=== PATIENT | male | born 1990 | race African-American/Black ===

== ENCOUNTER 2017-07-26 23:20 | Inpatient (IN) ==
--- NOTE | 2017-07-27 00:16 | Emergency Department Note ---
Mariel Chapin Emily, am scribing for, and in the presence of, Johnathan Humphries MD 00: 12. Kristel Chapin Charles R, MD, personally performed the services described in this documentation, ascribed by Pam Floyd in my presence, and it is both accurate and complete . Arrival - Arrival Chief Complaint: Psychiatric Stated Complaint: psych ED Nursing Triage Note: Family reports that patient has been making suicidal and homicidal threats. Patient denies threats, but states that there is an " evil dude" in his head that tells him to do bad things and he wants to know why he is so evil. Patient denies medical history. Mode of Arrival: Stretcher Limitations: No Limitations Source: Patient Time Seen by Provider: 07/26/17 23:38 - History of Present Illness HPI Narrative: Pt is a 26 y/o male who was brought to ED by EMS and [facility] for further evaluation of suicidal and homicidal ideation that happened at home earlier tonight. Pt was arousable on exam but either states "yes" or "no" when asked questions, in which denies any auditory and visual hallucinations or suicidal ideation. He does not answer whether or not he is having homicidal ideation. Pt states "yes" to being dx with schizophrenia in the past. However, family reports that pt has been making suicidal and homicidal threats. He stated to nursing staff, that there is an "evil dude" in his head that tells him to do bad things and he wants to know why he is so evil. Onset (ago): hour(s) Consistency: constant Severity: moderate Severity scale (1-10): 5 Allergies/Adverse Reactions: Allergies Allergy/AdvReac Type Severity Reaction Status Date / Time No Known Allergies Allergy Verified 07/26/17 21:11 Home Medications: Home Medications Medication Instructions Recorded Confirmed Type No Known Home Medications [No 04/19/16 07/26/17 History Known Home Medications] Review of System - Review of System 12 point system: reviewed and no additional remarkable complaints except as stated - Review of System Constitutional: Absent: fever, weakness Respiratory: Absent: respiratory distress Skin: Absent: rash Psychiatric: Absent: suicidal thoughts, homicidal thoughts, auditory hallucinations, visual hallucinations Medical,Surgical,& Family Hx - Medical History Psychological: History of: Violent Behavior, Psychiatric Problems (reports hearing voices) - Surgical History Surgical History: noncontributory - Family History Family History: noncontributory - Social History Smoking Status: Never smoker Frequency of Alcohol Use: None Type of Drug Use: None Marital Status: Single Lives With:: Parent Functional capacity: independent ambulation Exam Vital Signs: Vital Signs Temperature 97.4 F L 07/26/17 23:20 Pulse Rate 70 07/26/17 23:20 Respiratory Rate 20 07/26/17 23:20 Blood Pressure 116/76 07/26/17 23:20 O2 Sat by Pulse Oximetry 100 07/26/17 23:20 - General Exam limited due to: uncooperative - Head Head exam: Present: atraumatic, normocephalic - Eye Eye exam: Absent: nystagmus - Chest Chest inspection: Present: symmetric chest wall rise - Respiratory Respiratory exam: Present: normal lung sounds bilaterally. Absent: respiratory distress - Cardiovascular Cardiovascular exam: Present: bradycardia (slow mellow heart rate), normal heart sounds - Neurological Exam Neurological exam: Present: CN II-XII intact, other (likes to sleep but is vigilant). Absent: motor sensory deficit - Skin Skin exam: Present: warm, dry Course Course Narrative: Patient is medically cleared to go to a psychiatric facility - Consultations Consultation #1: We called [facility] they do not have any beds there and psych diversion so is majority the hospitals in [place]. We called [facility] they are in the process of seeing if they have any beds we are waiting for a phone call back. We also called the crisis center [facility] who does have beds. They will accept patient in the morning when they have staff to take this patient. Patient will be placed on a 72 hour hold due to acute psychosis and threat to himself and others Time: 03:58 Consultation #2: [facility] callback they accepted patient for transfer direct admit to Dr Chapo Renee room [address] direct admit via the ER Time: 04:21 Results - Labs CBC & BMP: 07/27/17 00:25 07/27/17 00:25 Lab Results: I have reviewed the patients labs Labs: Laboratory Tests 07/27/17 07/27/17 07/27/17 00:25 00:25 00:25 WBC 7.9 RBC 4.39 Hgb 13.3 L Hct 39.0 L Plt Count 165 Lymph % (Auto) 20.3 L [place] # (Auto) 0.9 H Sodium 141 Potassium 3.4 L Chloride 106 Carbon Dioxide 30 Creatinine 1.20 GFR Calculation 115 Glucose 96 Total Bilirubin 2.00 H Ammonia 14 Salicylates < 2.8 L Acetaminophen < 2.0 L Serum Alcohol < 15 L Disposition Clinical Impression: Acute psychosis, Suicidal ideation Case discussed with: patient Disposition: Disch/Xfer to Psych Hos Condition: Guarded Time of Disposition: 03:59
[2017-07-27 00:35] LABS: Basophils # 0.1 10*3/uL (0.0-0.2); Basophils % 0.6 % (0.0-0.8); Eosinophils # 0.1 10*3/uL (0.0-0.87); Hemoglobin 13.3 GM/DL (14.0-18.0); Immature Granulocytes % 0.5 %; Immature Granulocytes Absolute 0.04 #; Lymphocytes # 1.6 10*3/uL (1.4-4.0); Lymphocytes % 20.3 % (21.2-54.2); Mean Corpuscular HGB Conc 34.1 GM/DL (32-36); Mean Corpuscular Hemoglobin 30 PG (27-34); Mean Corpuscular Volume 88.8 FL (87-102); Mean Platelet Volume 10.1 FL (9.6-12.0); Monocytes # 0.9 10*3/uL (0.11-0.8); Monocytes % 10.8 % (1.7-12.7); Neutrophils # 5.3 10*3/uL (1.4-7.4); Neutrophils % 66.8 % (38.7-73.9); Platelet Count 165 T/CUMM (130-400); Red Blood Count 4.39 MC/CUMM (3.8-5.5); Red Cell Distribution Width 13.2 % (9.3-17.3); White Blood Count 7.9 T/CUMM (4-12)
[2017-07-27 00:51] LABS: Acetaminophen < 2.0 UG/ML (10-30); Salicylate < 2.8 MG/DL (2.8-20)
[2017-07-27 00:52] LABS: Ammonia 14 UMOL/L (11-32)
[2017-07-27 00:55] LABS: Alanine Aminotransferase 21 U/L (16-61); Alkaline Phosphatase 66 U/L (45-117); Aspartate Amino Transferase 32 U/L (0-37); Blood Urea Nitrogen 9 MG/DL (7-18); Calcium 8.9 MG/DL (8.5-10.1); Glucose 96 MG/DL (74-106); Osmolality,Calculated 279.3 MOS/KG (273-304); Potassium 3.4 MMOL/L (3.5-5.1); Sodium 141 MMOL/L (136-145); Total Protein 6.9 G/DL (6.4-8.3)
--- NOTE | 2017-07-27 05:57 | Hospitalist History & Physical ---
Assessment and Plan (1) Auditory hallucinations Status: Acute Assessment and plan: Suicide precautions 1 on 1 observation Will consult social work for psychiatric placement Pending urine drug screen Current Visit: Yes (2) Acute psychosis Status: Acute Current Visit: Yes History of Present Illness Chief complaint: auditory hallucinations History of present illness: Called to the ER for Mr. Main who is a 26 year old male that began having auditory hallucinations approximately 1-2 weeks ago. He states the voices tell him "positive things like to go to work, to do good things." He denies suicidial ideations, homicidal ideations, previous suicide attempts, visual hallucinations, drug or alcohol abuse. He states he thinks he is bi-polar but has not seen anyone for it because "no one will help me." Mr. Main is a poor historian that can become aggressive at times. He states that his family does not care about him and tells him that he should sleep at the bus stop. He thinks he caught something at the [employer] [place] while he was working there. Patient is not forthcoming of information and states "I don't care about any of that" when asked about PMH, PSH, or medications. Patient will be admitted into the hospital with suicide precautions and one on one observation. Social work will be consulted to find placement for him. Home Medications Medication Instructions Recorded Confirmed Type No Known Home Medications [No 04/19/16 07/26/17 History Known Home Medications] Allergies Allergy/AdvReac Type Severity Reaction Status Date / Time No Known Allergies Allergy Verified 07/26/17 21:11 Medical,Surgical,& Family Hx - Medical History Cardio: No history of: CHF, CT Psychological: History of: Bipolar Disorder, Violent Behavior, Psychiatric Problems (reports hearing voices) Other: History of: Miscellaneous Medical Problems - Social History Smoking Status: Never smoker Frequency of Alcohol Use: None Type of Drug Use: None - Psychiatric Psychiatric: Present: auditory hallucinations. Absent: anxiety (Patient not forthcoming of exam), homicidal ideation, suicidal ideation, visual hallucinations Exam - Constitutional Vitals: Period Temp Pulse Resp BP Sys/Cantu Pulse Ox Last 24 Hr 97.4 F-97.4 F 70-70 18-20 116-116/76-76 100 General appearance: normal weight, other (agitated) Exam: Unable to complete full exam due to patient's agitation - Head Head exam: Present: normal inspection, normocephalic - Eye Eye exam: Present: EOMI, conjunctival injection Pupils: Present: DESHAWN, normal accommodation - ENT ENT exam: Present: normal exam - Neck Neck exam: Present: normal inspection - Respiratory Respiratory exam: Present: clear to auscultation bilaterally. Absent: accessory muscle use (Respirations even and non-labored. Symmetrical rise and fall of chest noted. ) - Cardiovascular Cardiovascular exam: Present: regular rate and rhythm - Neurological Exam Neurological exam: Present: other (Agitated and not able to answer questions appropriately ) - Psychiatric Psychiatric exam: Present: agitated - Skin Skin exam: Present: normal color, warm, dry, intact Results - Labs CBC & BMP: 07/27/17 00:25 07/27/17 00:25 Lab Results: I have reviewed the past 24 hour labs
[2017-07-27] MEDS: DOCUSATE SODIUM 100 MG CAPSULE PO PRN ×2 (09:14→21:02)
[2017-07-27] MEDS: ENOXAPARIN 40 MG/0.4 ML SYRINGE SUBCUT SCH (09:14)
[2017-07-27] MEDS: PANTOPRAZOLE 40 MG TABLET PO SCH (09:14)
[2017-07-27 12:17] LABS: Barbiturates Screen,Urine Negative (Negative); Benzodiazepines Screen,Urine Negative (Negative); Cannabinoid Screen,Urine Positive (Negative); Opiate Screen,Urine Negative (Negative); Phencyclidine Screen,Urine Negative (Negative)
--- NOTE | 2017-07-27 17:19 | Event Note ---
26-year-old male admitted with auditory hallucinations and psychosis. ER was unable to place in a psychiatric facility and therefore patient was admitted to the hospital service. He is stable. day worker is trying to get him into a psychiatric facility. We will continue to monitor while he is here.
[2017-07-28] MEDS: DOCUSATE SODIUM 100 MG CAPSULE PO PRN (08:35)
[2017-07-28] MEDS: PANTOPRAZOLE 40 MG TABLET PO SCH (08:36)
[2017-07-28] MEDS: ENOXAPARIN 40 MG/0.4 ML SYRINGE SUBCUT SCH (08:36)
[2017-07-28] MEDS ORDERED: LORazepam 2 MG/1 ML VIAL IV PRN (09:00)
[2017-07-28] MEDS ORDERED: HALOPERIDOL 5 MG/ML AMP IV PRN (09:00)
[2017-07-28] MEDS ORDERED: SENNA 8.6 MG TABLET PO SCH (09:30)
--- NOTE | 2017-07-28 11:07 | Event Note ---
Mr. Main was admitted with auditory hallucinations and psychosis. He was never on a 72 hour hold. He is stable to go to a psychiatric facility from a medical standpoint.
--- NOTE | 2017-07-28 15:35 | Hospitalist Progress Note ---
Hospitalist: Subjective Interval history: Ms. Main is awake and alert today. At the time of my exam he denied any suicidal or homicidal ideation. He did complain of constipation, with last bowel movement about 3 days ago. Exam - Constitutional Vitals: Period Temp Pulse Resp BP Sys/Cantu Pulse Ox Last 24 Hr 97.4 F-98.4 F 53-76 14-20 115-135/69-86 96-98 Exam: General: No Acute Distress HEENT: Normocephalic, atraumatic, Extra ocular movements intact Neck: Supple, No JVD Chest: Clear to auscultation B/L CV: S1 + S2 audible without murmur, gallop or rub Abd: soft, NT, Non-distended, BS + Ext: No edema Skin: No purpura, bruising or rash Rheumatologic: No Joint deformities Neurologic: Awake and alert Results - Labs CBC & BMP: 07/27/17 00:25 07/27/17 00:25 - Impressions Acute psychosis Status: Acute Current Visit: Yes utility worker [employer] is trying to get him into inpatient psychiatric facility. Medically he is stable to go to a psychiatric facility. He is on one-to-one watch for safety. Discussed with the window caser, social media senior associate as well as the patient's nurse. Constipation Status: Acute Current Visit: Yes We have ordered MiraLAX, Colace and senna for this problem. Will monitor for response.
--- NOTE | 2017-07-28 15:57 | Discharge Summary ---
Hospital Course - Hospital Course Hospital Course: 26-year-old -[place] Citizen male was admitted from the emergency department to the hospitalist service because of acute psychosis and auditory hallucinations. He was admitted to the hospitalist service because ER was unable to find a psychiatric facility in time for transfer. He was admitted to the medical floor and placed on one-to-one watch. At times he will become aggressive and hostile towards the staff. At times he would deny suicidal ideation or homicidal ideation, but at other times he would admit to staff about those ideations. After discussion with us in case management and pediatric social worker, it was felt that he would get treatment in an inpatient psychiatric facility. Arrangements have been made and he has been accepted into a psychiatric facility. Hemodynamically he remained stable throughout the course of the hospitalization, and medically he is stable to be transferred to an inpatient psychiatric facility. - Time spent with patient Time with patient DS: Less than 30 minutes Diagnosis - Discharge Diagnosis (1) Acute psychosis Status: Acute Discharge Plan - Discharge Data Disposition: Disch/Xfer to Psych Hos Condition at Discharge: Stable Discharge Diet: advance to your usual diet, regular diet Hygiene: no restrictions Weight Bearing at Discharge: full weight bearing Driving: no restrictions - Discharge Medications New Docusate Sodium Cap [Colace Cap] 100 mg PO BID PRN capsule PRN Reason: Constipation Polyethylene Glycol Powder [Miralax] 17 gm PO BID No Action No Known Home Medications [No Known Home Medications] - Follow Up or Referral - Forms/Instructions Exam - Constitutional Vitals: Period Temp Pulse Resp BP Sys/Cantu Pulse Ox Last 24 Hr 97.4 F-98.4 F 53-76 14-20 115-135/69-86 96-98 Exam: General: No Acute Distress HEENT: Normocephalic, atraumatic, Extra ocular movements intact Neck: Supple, No JVD Chest: Clear to auscultation B/L CV: S1 + S2 audible without murmur, gallop or rub Abd: soft, NT, Non-distended, BS + Ext: No edema Skin: No purpura, bruising or rash Rheumatologic: No Joint deformities Neurologic: Strength 5/5 all extremities, no gross sensory deficits DS: Provider Date of admission: 07/27/17 05:48 Primary care physician: . No PCP Attending physician on admission: Jeanmarie Brito MD Consults: 07/27/17 07:51 Consult to Case Mgmt/Social Srvs [CONS] Routine Reason for Case Mgmt/Social Srvs: Psychiatric Management Discharging clinician: Angelito Flynn MD
[2017-07-28 16:16] VITALS: BP 124/74
[2017-07-28] MEDS ORDERED: POLYETHYLENE GLYCOL POWDER 17 GM PACK PO SCH (21:00)
== END 2017-07-28 16:59 | DRG 885 ==
LOC: EDUNIT# → EDBD → N.ED 23:20 → SUATTDRO 07-27 05:48 → N.EDINP 07-27 05:48 → N.4E 07-27 06:22
PROVIDERS: ADMIT Internal Medicine; ATTEND Hospitalist